=== PATIENT | female | born 1935 | race Caucasian/White ===

== ENCOUNTER 2017-05-20 21:13 | Emergency (ER) | payer MEDICARE, OTHER ==
[~2017-05-20] VITALS: Ht 162.6 cm; Wt 77.3 kg
[2017-05-20] MEDS ORDERED: acetaminophen 325mg tablet PO ONE (21:30)
[2017-05-20 22:01] LABS: BASOPHILS % (AUTO) 0.1 % (0-1); EOSINOPHILS % (AUTO) 0.9 % (0-6); HEMATOCRIT 40.7 % (35.0-45.0); HEMOGLOBIN 13.9 g/dl (12.0-16.0); LYMPHOCYTES # (AUTO) 0.4 X10'3 (1.1-4.8); LYMPHOCYTES % (AUTO) 6.9 % (21-51); MEAN CORPUSCULAR HEMOGLOBIN 34.2 PG (27.0-31.0); MEAN CORPUSCULAR VOLUME 100.5 FL (78-98); MEAN PLATELET VOLUME 7.8 FL (7.4-10.4); MONOCYTES # (AUTO) 0.3 X10'3 (0-0.9); MONOCYTES % (AUTO) 6.4 % (2-12); NEUTROPHILS # (AUTO) 4.5 X10'3 (1.8-7.7); NEUTROPHILS % (AUTO) 85.7 % (42-75); PLATELET COUNT 184 X10'3 (140-440); RED BLOOD COUNT 4.05 X10'6 (4.20-5.60); RED CELL DISTRIBUTION WIDTH 14.7 % (11.5-14.5); WHITE BLOOD COUNT 5.2 X10'3 (4.5-11.0)
[2017-05-20 22:14] LABS: INR 1.1 INR; PARTIAL THROMBOPLASTIN TIME 31 SECONDS (22-32); PROTHROMBIN TIME 10.9 SECONDS (9.0-12.0)
[2017-05-20 22:16] LABS: ALANINE AMINOTRANSFERASE 33 U/L (12-78); ALBUMIN 3.8 G/DL (3.4-5.0); ALBUMIN/GLOBULIN RATIO 1.2 (1.1-1.5); ALKALINE PHOSPHATASE 69 IU/L (46-116); ANION GAP 10 (8-16); ASPARTATE AMINO TRANSFERASE 34 U/L (10-37); BILIRUBIN,TOTAL 0.4 MG/DL (0.1-1.0); BLOOD UREA NITROGEN 10 MG/DL (7-18); BUN/CREATININE RATIO 10.1 (6.6-38.0); CALCIUM 9.2 MG/DL (8.5-10.1); CHLORIDE 107 MMOL/L (99-107); CREATININE 0.99 MG/DL (0.40-0.90); GLUCOSE 119 MG/DL (70-104); POTASSIUM 3.4 MMOL/L (3.5-5.1); SODIUM 143 MMOL/L (135-145); TOTAL CARBON DIOXIDE 26.3 MMOL/L (24-32); TOTAL PROTEIN 6.9 G/DL (6.4-8.2); eGFR 54 ML/MIN
[2017-05-20] MEDS ORDERED: normal saline 1000ML IV soln IVB ONE (23:00)
[2017-05-20] MEDS ORDERED: ondansetron/PF 4mg/2ml inj IV ONE (23:25)
[2017-05-21 00:07] LABS: CLARITY,URINE Clear (Clear); COLOR,URINE Yellow (Yellow); GLUCOSE, URINE Negative (Neg); KETONES,URINE Trace mg/dl (Neg); LEUKOCYTE ESTERASE ,URINE Moderate (Neg); NITRITES, URINE Negative (Neg); OCCULT BLOOD,URINE Negative (Neg); PH,URINE 5.5 (4.8-8.0); PROTEIN,URINE 30 mg/dl (Neg)
[2017-05-21 00:09] LABS: UA COLLECTION TYPE CLN CATCH MIDSTREAM
[2017-05-21 00:25] LABS: BACTERIA,URINE NONE SEEN /HPF (Neg); MUCUS STRANDS MANY /LPF (Neg); RBC,URINE NONE SEEN /HPF (0-2); SQUAMOUS EPITHELIAL CELL,UR FEW /LPF (FEW)
[2017-05-21] MEDS ORDERED: TAM75C PO (00:29)
[2017-05-21] MEDS ORDERED: ONDA8TAB9 PO (00:29)
[2017-05-21] MEDS ORDERED: oseltamivir phos 75mg capsule PO ONE (00:30)
[2017-05-21 01:44] VITALS: BP 129/73
[2017-05-21] MEDS ORDERED: ASPI-1265 PO (13:47)
[2017-05-21] MEDS ORDERED: CITA20TA11 PO (13:47)
[2017-05-21] MEDS ORDERED: OMEP40CA37 PO (13:47)
[2017-05-21] MEDS ORDERED: ROSU10TA PO (13:47)
[2017-05-21] MEDS ORDERED: FAMO40TA7 PO (13:47)
[2017-05-21] MEDS ORDERED: OSC500T PO (13:47)
[2017-05-21] MEDS ORDERED: CELE-193 PO (13:47)
[2017-05-21] MEDS ORDERED: CALC-1197 PO (13:47)
[2017-05-21] MEDS ORDERED: TOLT4CAP14 PO (13:47)
== END 2017-05-21 02:35 | disposition home or self-care (01) ==
LOC: ER 21:14
DX: J11.1 Influenza due to unidentified influenza virus with other respiratory manifestations (principal); R11.2 Nausea with vomiting, unspecified; R19.7 Diarrhea, unspecified; Z88.1 Allergy status to other antibiotic agents; Z88.8 Allergy status to other drugs, medicaments and biological substances; Z79.899 Other long term (current) drug therapy
CPT/HCPCS: 36415; 71045; 80053; 81001; 83605; 84145; 85025; 85610; 85730; 87040; 87088; 96361; 96374; 96375; 99285; J2270; J2405; J7030

== ENCOUNTER 2017-05-21 12:06 | Inpatient (IN) | payer MEDICARE, OTHER ==
[~2017-05-21] VITALS: Ht 162.6 cm; Wt 77.2 kg
[~2017-05-21 12:06] MED LIST: ONDA8TAB9 PO; TAM75C PO
[2017-05-21] MEDS ORDERED: normal saline 1000ML IV soln IVB ONE (13:10)
[2017-05-21 13:46] LABS: BASOPHILS % (AUTO) 0.2 % (0-1); EOSINOPHILS % (AUTO) 0 % (0-6); HEMATOCRIT 38.8 % (35.0-45.0); LYMPHOCYTES # (AUTO) 0.5 X10'3 (1.1-4.8); LYMPHOCYTES % (AUTO) 9.2 % (21-51); MEAN CORPUSCULAR HEMOGLOBIN 33.7 PG (27.0-31.0); MEAN CORPUSCULAR HGB CONC 33.5 % (33.0-36.5); MEAN CORPUSCULAR VOLUME 100.5 FL (78-98); MEAN PLATELET VOLUME 7.9 FL (7.4-10.4); MONOCYTES # (AUTO) 0.6 X10'3 (0-0.9); MONOCYTES % (AUTO) 10.9 % (2-12); NEUTROPHILS # (AUTO) 4.1 X10'3 (1.8-7.7); NEUTROPHILS % (AUTO) 79.7 % (42-75); PLATELET COUNT 178 X10'3 (140-440); RED BLOOD COUNT 3.86 X10'6 (4.20-5.60); RED CELL DISTRIBUTION WIDTH 14.6 % (11.5-14.5); WHITE BLOOD COUNT 5.1 X10'3 (4.5-11.0)
[2017-05-21] MEDS ORDERED: ASPI-1265 PO (13:47)
[2017-05-21] MEDS ORDERED: OMEP40CA37 PO (13:47)
[2017-05-21] MEDS ORDERED: TOLT4CAP14 PO (13:47)
[2017-05-21] MEDS ORDERED: CALC-1197 PO (13:47)
[2017-05-21] MEDS ORDERED: ROSU10TA PO (13:47)
[2017-05-21] MEDS ORDERED: OSC500T PO (13:47)
[2017-05-21] MEDS ORDERED: CITA20TA11 PO (13:47)
[2017-05-21] MEDS ORDERED: FAMO40TA7 PO (13:47)
[2017-05-21] MEDS ORDERED: CELE-193 PO (13:47)
[2017-05-21 13:53] LABS: ANION GAP 9 (8-16); BILIRUBIN,TOTAL 0.4 MG/DL (0.1-1.0); BLOOD UREA NITROGEN 9 MG/DL (7-18); BUN/CREATININE RATIO 11.7 (6.6-38.0); CALCIUM 8.8 MG/DL (8.5-10.1); CHLORIDE 106 MMOL/L (99-107); CREATININE 0.77 MG/DL (0.40-0.90); GLUCOSE 101 MG/DL (70-104); POTASSIUM 3.6 MMOL/L (3.5-5.1); SODIUM 141 MMOL/L (135-145); TOTAL CARBON DIOXIDE 25.7 MMOL/L (24-32); eGFR 72 ML/MIN
[2017-05-21 13:54] LABS: ALANINE AMINOTRANSFERASE 32 U/L (12-78); ALBUMIN 3.4 G/DL (3.4-5.0); ALBUMIN/GLOBULIN RATIO 1.1 (1.1-1.5); ALKALINE PHOSPHATASE 57 IU/L (46-116); ASPARTATE AMINO TRANSFERASE 36 U/L (10-37); TOTAL PROTEIN 6.4 G/DL (6.4-8.2)
[2017-05-21] MEDS ORDERED: diphenhydrAMINE 25mg capsule PO PRN (14:50)
[2017-05-21] MEDS ORDERED: HYDROcodone/acetaminophen 5mg/325mg tablet PO PRN (14:50)
[2017-05-21] MEDS ORDERED: mag hydrox/Alum hydrox/simeth 30ml oral suspension PO PRN (14:50)
[2017-05-21] MEDS ORDERED: ondansetron/PF 4mg/2ml inj IV PRN (14:50)
[2017-05-21] MEDS ORDERED: acetaminophen 325mg tablet PO PRN ×2 (14:50)
[2017-05-21] MEDS ORDERED: metoclopramide 5 mg/ml inj IV PRN (14:50)
[2017-05-21] MEDS ORDERED: acetaminophen 650mg rectal suppository RC PRN (14:50)
[2017-05-21] MEDS ORDERED: diphenhydrAMINE 50 mg/ml inj IV PRN (14:50)
[2017-05-21] MEDS ORDERED: HYDROmorphone 1 mg/ml syringe IV PRN ×2 (14:50)
[2017-05-21] MEDS ORDERED: magnesium hydroxide 30ml (MOM) UD suspension PO PRN (14:50)
[2017-05-21] MEDS ORDERED: bisacodyl 10mg suppository rectal RC PRN (14:50)
[2017-05-21] MEDS: normal saline 1000ml 1,000 ML IV SCH ×2 (15:23→21:45)
[2017-05-21] MEDS: azithromycin/NS 500mg/250ml 250 ML IV SCH (15:23)
[2017-05-21 15:30] LABS: MAGNESIUM 1.8 MG/DL (1.5-2.4)
[2017-05-21] MEDS: HYDROcodone/acetaminophen 10/325mg tab PO PRN (16:32)
[2017-05-21 20:00] VITALS: BP 162/99
[2017-05-21] MEDS: heparin, porcine 5000 units/ml vial SQ SCH (20:00)
[2017-05-21] MEDS ORDERED: temazepam 15mg capsule PO PRN (21:00)
[2017-05-21] MEDS: pantoprazole 40mg Tablet.DR PO SCH (21:44)
[2017-05-21] MEDS: oseltamivir phos 75mg capsule PO SCH (21:44)
[2017-05-21] MEDS: methylPREDNISolone sod succ 125mg/2ml vial IV SCH (21:44)
[2017-05-21] MEDS: famotidine 20mg tablet PO SCH (21:44)
[2017-05-22] VITALS: BP 166/99
[2017-05-22 01:53] LABS: ALANINE AMINOTRANSFERASE 30 U/L (12-78); ALBUMIN 3.2 G/DL (3.4-5.0); ALBUMIN/GLOBULIN RATIO 1.1 (1.1-1.5); ALKALINE PHOSPHATASE 57 IU/L (46-116); ANION GAP 8 (8-16); ASPARTATE AMINO TRANSFERASE 36 U/L (10-37); BILIRUBIN,TOTAL 0.4 MG/DL (0.1-1.0); BLOOD UREA NITROGEN 9 MG/DL (7-18); BUN/CREATININE RATIO 12.9 (6.6-38.0); CALCIUM 8.1 MG/DL (8.5-10.1); CHLORIDE 106 MMOL/L (99-107); GLUCOSE 110 MG/DL (70-104); POTASSIUM 3.6 MMOL/L (3.5-5.1); SODIUM 138 MMOL/L (135-145); TOTAL CARBON DIOXIDE 23.7 MMOL/L (24-32); TOTAL PROTEIN 6.2 G/DL (6.4-8.2); eGFR 80 ML/MIN
[2017-05-22 02:30] LABS: BASOPHILS % (AUTO) 0.1 % (0-1); EOSINOPHILS % (AUTO) 0 % (0-6); HEMOGLOBIN 12.7 g/dl (12.0-16.0); LYMPHOCYTES # (AUTO) 0.6 X10'3 (1.1-4.8); LYMPHOCYTES % (AUTO) 13.3 % (21-51); MEAN CORPUSCULAR HEMOGLOBIN 33.9 PG (27.0-31.0); MEAN CORPUSCULAR HGB CONC 33.3 % (33.0-36.5); MEAN CORPUSCULAR VOLUME 101.7 FL (78-98); MEAN PLATELET VOLUME 8.2 FL (7.4-10.4); MONOCYTES # (AUTO) 0.1 X10'3 (0-0.9); MONOCYTES % (AUTO) 2.9 % (2-12); NEUTROPHILS # (AUTO) 3.6 X10'3 (1.8-7.7); NEUTROPHILS % (AUTO) 83.7 % (42-75); PLATELET COUNT 164 X10'3 (140-440); RED BLOOD COUNT 3.74 X10'6 (4.20-5.60); RED CELL DISTRIBUTION WIDTH 14.4 % (11.5-14.5); WHITE BLOOD COUNT 4.3 X10'3 (4.5-11.0)
[2017-05-22] MEDS: normal saline 1000ml 1,000 ML IV SCH ×2 (07:28→19:01)
[2017-05-22] MEDS: oseltamivir phos 75mg capsule PO SCH ×2 (07:28→20:43)
[2017-05-22] MEDS: methylPREDNISolone sod succ 125mg/2ml vial IV SCH (07:29)
[2017-05-22] MEDS: azithromycin/NS 500mg/250ml 250 ML IV SCH (07:29)
[2017-05-22] MEDS: tolterodine 2mg SR capsule (24hr) PO SCH (07:29)
[2017-05-22] MEDS: lactobacillus rhamnosus 10,000 MMU CELLS/CAPSULE PO SCH ×2 (07:30→16:52)
[2017-05-22] MEDS: aspirin 81mg tab.chew PO SCH (07:30)
[2017-05-22] MEDS: atorvastatin 20mg tablet PO SCH (07:31)
[2017-05-22] MEDS: citalopram 20mg tablet PO SCH (07:31)
[2017-05-22] MEDS: pantoprazole 40mg Tablet.DR PO SCH ×2 (07:31→16:52)
[2017-05-22] MEDS: heparin, porcine 5000 units/ml vial SQ SCH ×2 (08:00→20:00)
[2017-05-22 08:21] VITALS: BP 133/81
[2017-05-22 11:42] VITALS: BP 143/82
[2017-05-22] MEDS ORDERED: haloperidol 5mg tablet PO PRN (12:30)
[2017-05-22] MEDS ORDERED: haloperidol lactate 5mg/ml inj IM PRN (12:30)
[2017-05-22] MEDS ORDERED: LORazepam 2 mg/ml vial IV PRN (12:30)
[2017-05-22 20:00] VITALS: BP 140/78
[2017-05-22] MEDS: famotidine 20mg tablet PO SCH (20:43)
[2017-05-23] VITALS: BP 145/97
[2017-05-23 06:07] LABS: PROTHROMBIN TIME 10.4 SECONDS (9.0-12.0)
[2017-05-23 06:09] LABS: BASOPHILS % (AUTO) 0.2 % (0-1); EOSINOPHILS % (AUTO) 0 % (0-6); HEMOGLOBIN 12.8 g/dl (12.0-16.0); LYMPHOCYTES # (AUTO) 1.2 X10'3 (1.1-4.8); LYMPHOCYTES % (AUTO) 16.4 % (21-51); MEAN CORPUSCULAR HEMOGLOBIN 33.8 PG (27.0-31.0); MEAN CORPUSCULAR HGB CONC 33.6 % (33.0-36.5); MEAN CORPUSCULAR VOLUME 100.5 FL (78-98); MEAN PLATELET VOLUME 8.4 FL (7.4-10.4); MONOCYTES # (AUTO) 0.9 X10'3 (0-0.9); MONOCYTES % (AUTO) 12.3 % (2-12); NEUTROPHILS # (AUTO) 5.3 X10'3 (1.8-7.7); NEUTROPHILS % (AUTO) 71.1 % (42-75); PLATELET COUNT 214 X10'3 (140-440); RED BLOOD COUNT 3.78 X10'6 (4.20-5.60); RED CELL DISTRIBUTION WIDTH 14.4 % (11.5-14.5); WHITE BLOOD COUNT 7.5 X10'3 (4.5-11.0)
[2017-05-23 06:52] LABS: ALANINE AMINOTRANSFERASE 27 U/L (12-78); ALBUMIN 3.3 G/DL (3.4-5.0); ALBUMIN/GLOBULIN RATIO 1.1 (1.1-1.5); ALKALINE PHOSPHATASE 53 IU/L (46-116); AMYLASE 41 U/L (25-115); ANION GAP 10 (8-16); ASPARTATE AMINO TRANSFERASE 26 U/L (10-37); BILIRUBIN,TOTAL 0.3 MG/DL (0.1-1.0); BLOOD UREA NITROGEN 14 MG/DL (7-18); BUN/CREATININE RATIO 13.6 (6.6-38.0); CALCIUM 8.9 MG/DL (8.5-10.1); CHLORIDE 109 MMOL/L (99-107); CREATININE 1.03 MG/DL (0.40-0.90); GLUCOSE 112 MG/DL (70-104); LIPASE 109 U/L (73-393); PHOSPHORUS 1.8 MG/DL (2.3-4.5); POTASSIUM 3.4 MMOL/L (3.5-5.1); SODIUM 144 MMOL/L (135-145); TOTAL CARBON DIOXIDE 25.4 MMOL/L (24-32); TOTAL PROTEIN 6.4 G/DL (6.4-8.2); eGFR 51 ML/MIN
[2017-05-23 07:28] VITALS: BP 149/81
[2017-05-23] MEDS: lactobacillus rhamnosus 10,000 MMU CELLS/CAPSULE PO SCH (07:30)
[2017-05-23] MEDS: heparin, porcine 5000 units/ml vial SQ SCH ×2 (08:00→22:08)
[2017-05-23] MEDS: atorvastatin 20mg tablet PO SCH (08:07)
[2017-05-23] MEDS: oseltamivir phos 75mg capsule PO SCH ×2 (08:07→22:08)
[2017-05-23] MEDS: predniSONE 20 mg tablet PO SCH (08:07)
[2017-05-23] MEDS: tolterodine 2mg SR capsule (24hr) PO SCH (08:07)
[2017-05-23] MEDS: pantoprazole 40mg Tablet.DR PO SCH ×2 (08:07→17:00)
[2017-05-23] MEDS: aspirin 81mg tab.chew PO SCH (08:07)
[2017-05-23] MEDS: citalopram 20mg tablet PO SCH (08:08)
[2017-05-23] MEDS: azithromycin 250mg tablet PO SCH (08:08)
[2017-05-23 11:24] VITALS: BP 109/68
[2017-05-23 20:00] VITALS: BP 158/88
[2017-05-23] MEDS: famotidine 20mg tablet PO SCH (22:08)
[2017-05-24] VITALS: BP 150/80
[2017-05-24 05:55] LABS: BASOPHILS % (AUTO) 0.2 % (0-1); EOSINOPHILS % (AUTO) 0 % (0-6); HEMATOCRIT 35.4 % (35.0-45.0); HEMOGLOBIN 11.8 g/dl (12.0-16.0); LYMPHOCYTES # (AUTO) 1.6 X10'3 (1.1-4.8); LYMPHOCYTES % (AUTO) 32.2 % (21-51); MEAN CORPUSCULAR HEMOGLOBIN 33.6 PG (27.0-31.0); MEAN CORPUSCULAR HGB CONC 33.5 % (33.0-36.5); MEAN CORPUSCULAR VOLUME 100.5 FL (78-98); MEAN PLATELET VOLUME 7.9 FL (7.4-10.4); MONOCYTES # (AUTO) 0.5 X10'3 (0-0.9); MONOCYTES % (AUTO) 10.7 % (2-12); NEUTROPHILS # (AUTO) 2.9 X10'3 (1.8-7.7); NEUTROPHILS % (AUTO) 56.9 % (42-75); PLATELET COUNT 205 X10'3 (140-440); RED BLOOD COUNT 3.52 X10'6 (4.20-5.60); RED CELL DISTRIBUTION WIDTH 14.3 % (11.5-14.5)
[2017-05-24 06:14] LABS: PROTHROMBIN TIME 10.4 SECONDS (9.0-12.0)
[2017-05-24 06:52] LABS: ALANINE AMINOTRANSFERASE 31 U/L (12-78); ALBUMIN 2.9 G/DL (3.4-5.0); ALBUMIN/GLOBULIN RATIO 1.1 (1.1-1.5); ALKALINE PHOSPHATASE 42 IU/L (46-116); AMYLASE 43 U/L (25-115); ANION GAP 9 (8-16); ASPARTATE AMINO TRANSFERASE 25 U/L (10-37); BILIRUBIN,TOTAL 0.3 MG/DL (0.1-1.0); BLOOD UREA NITROGEN 15 MG/DL (7-18); BUN/CREATININE RATIO 17.6 (6.6-38.0); CHLORIDE 110 MMOL/L (99-107); CREATININE 0.85 MG/DL (0.40-0.90); GLUCOSE 86 MG/DL (70-104); LIPASE 162 U/L (73-393); MAGNESIUM 1.7 MG/DL (1.5-2.4); PHOSPHORUS 2.2 MG/DL (2.3-4.5); SODIUM 145 MMOL/L (135-145); TOTAL CARBON DIOXIDE 26.5 MMOL/L (24-32); TOTAL PROTEIN 5.6 G/DL (6.4-8.2); eGFR 64 ML/MIN
[2017-05-24 07:27] VITALS: BP 127/87
[2017-05-24] MEDS: predniSONE 20 mg tablet PO SCH (08:00)
[2017-05-24] MEDS: heparin, porcine 5000 units/ml vial SQ SCH ×2 (08:00→20:00)
[2017-05-24] MEDS: atorvastatin 20mg tablet PO SCH (09:35)
[2017-05-24] MEDS: pantoprazole 40mg Tablet.DR PO SCH ×2 (09:35→17:35)
[2017-05-24] MEDS: aspirin 81mg tab.chew PO SCH (09:35)
[2017-05-24] MEDS: oseltamivir phos 75mg capsule PO SCH ×2 (09:35→21:11)
[2017-05-24] MEDS: azithromycin 250mg tablet PO SCH (09:36)
[2017-05-24] MEDS: LACTOBACILLUS RHAMNOSUS GG 15 billion unit sprinkle caps PO SCH (09:36)
[2017-05-24] MEDS: citalopram 20mg tablet PO SCH (09:37)
[2017-05-24] MEDS: tolterodine 2mg SR capsule (24hr) PO SCH (09:38)
[2017-05-24] MEDS ORDERED: citalopram 20mg tablet PO ONE (09:55)
[2017-05-24 11:00] VITALS: BP 112/77
[2017-05-24] MEDS ORDERED: LORazepam 2 mg/ml vial IV PRN (12:30)
[2017-05-24] MEDS ORDERED: LORazepam 1 MG tablet PO PRN (12:30)
[2017-05-24] MEDS ORDERED: potassium Cl 40MEQ/NS 500ml 500 ML IV PRN ×2 (13:20)
[2017-05-24] MEDS ORDERED: potassium Cl 20 mEq SR tablet PO PRN (13:20)
[2017-05-24] MEDS ORDERED: magnesium 4gm in 100ml NS 100 ML IV PRN (13:20)
[2017-05-24] MEDS ORDERED: magnesium 2GM in 50ml NS 50 ML IV PRN (13:20)
[2017-05-24] MEDS ORDERED: magnesium Cl slow-release 64mg tablet PO PRN (13:20)
[2017-05-24] MEDS: potassium Cl 20 mEq SR tablet PO PRN ×3 (13:50→21:26)
[2017-05-24 18:00] VITALS: BP 148/92
[2017-05-24] MEDS: famotidine 20mg tablet PO SCH (21:13)
[2017-05-25] VITALS: BP 151/89
[2017-05-25 01:44] LABS: CLARITY,URINE Clear (Clear); COLOR,URINE Yellow (Yellow); GLUCOSE, URINE Negative (Neg); KETONES,URINE Negative (Neg); LEUKOCYTE ESTERASE ,URINE Trace (Neg); NITRITES, URINE Negative (Neg); OCCULT BLOOD,URINE Negative (Neg); PH,URINE 8.5 (4.8-8.0); PROTEIN,URINE Negative (Neg); UA COLLECTION TYPE NON-SPECIFIED
[2017-05-25 01:51] LABS: BACTERIA,URINE FEW /HPF (Neg); MUCUS STRANDS NONE SEEN /LPF (Neg); RBC,URINE NONE SEEN /HPF (0-2); SQUAMOUS EPITHELIAL CELL,UR FEW /LPF (FEW); TRANSITIONAL EPI CELLS,URINE FEW /HPF; WBC,URINE 0-4 /HPF (0-4)
[2017-05-25 06:28] LABS: BASOPHILS % (AUTO) 0.2 % (0-1); EOSINOPHILS % (AUTO) 0.5 % (0-6); HEMATOCRIT 39.5 % (35.0-45.0); HEMOGLOBIN 13.4 g/dl (12.0-16.0); LYMPHOCYTES # (AUTO) 2.4 X10'3 (1.1-4.8); LYMPHOCYTES % (AUTO) 45.2 % (21-51); MEAN CORPUSCULAR HEMOGLOBIN 34.2 PG (27.0-31.0); MEAN CORPUSCULAR HGB CONC 34.1 % (33.0-36.5); MEAN CORPUSCULAR VOLUME 100.5 FL (78-98); MEAN PLATELET VOLUME 8.1 FL (7.4-10.4); MONOCYTES # (AUTO) 0.6 X10'3 (0-0.9); MONOCYTES % (AUTO) 11.3 % (2-12); NEUTROPHILS # (AUTO) 2.2 X10'3 (1.8-7.7); NEUTROPHILS % (AUTO) 42.8 % (42-75); PLATELET COUNT 226 X10'3 (140-440); RED BLOOD COUNT 3.93 X10'6 (4.20-5.60); RED CELL DISTRIBUTION WIDTH 14.1 % (11.5-14.5); WHITE BLOOD COUNT 5.2 X10'3 (4.5-11.0)
[2017-05-25 06:36] LABS: PROTHROMBIN TIME 10.5 SECONDS (9.0-12.0)
[2017-05-25 07:06] LABS: ALANINE AMINOTRANSFERASE 33 U/L (12-78); ALBUMIN 3.3 G/DL (3.4-5.0); ALBUMIN/GLOBULIN RATIO 1.1 (1.1-1.5); ALKALINE PHOSPHATASE 46 IU/L (46-116); AMYLASE 56 U/L (25-115); ANION GAP 8 (8-16); ASPARTATE AMINO TRANSFERASE 31 U/L (10-37); BILIRUBIN,TOTAL 0.4 MG/DL (0.1-1.0); BLOOD UREA NITROGEN 12 MG/DL (7-18); BUN/CREATININE RATIO 12.2 (6.6-38.0); CALCIUM 8.6 MG/DL (8.5-10.1); CHLORIDE 109 MMOL/L (99-107); CREATININE 0.98 MG/DL (0.40-0.90); GLUCOSE 80 MG/DL (70-104); LIPASE 236 U/L (73-393); POTASSIUM 4.3 MMOL/L (3.5-5.1); SODIUM 143 MMOL/L (135-145); TOTAL CARBON DIOXIDE 26.1 MMOL/L (24-32); TOTAL PROTEIN 6.2 G/DL (6.4-8.2); eGFR 54 ML/MIN
[2017-05-25] MEDS: heparin, porcine 5000 units/ml vial SQ SCH ×2 (07:43→20:00)
[2017-05-25] MEDS: tolterodine 2mg SR capsule (24hr) PO SCH (07:44)
[2017-05-25] MEDS: oseltamivir phos 75mg capsule PO SCH ×2 (07:44→20:32)
[2017-05-25] MEDS: citalopram 20mg tablet PO SCH (07:44)
[2017-05-25] MEDS: aspirin 81mg tab.chew PO SCH (07:45)
[2017-05-25] MEDS: pantoprazole 40mg Tablet.DR PO SCH ×2 (07:45→17:19)
[2017-05-25] MEDS: azithromycin 250mg tablet PO SCH (07:45)
[2017-05-25] MEDS: LACTOBACILLUS RHAMNOSUS GG 15 billion unit sprinkle caps PO SCH (07:45)
[2017-05-25] MEDS: atorvastatin 20mg tablet PO SCH (07:45)
[2017-05-25] MEDS: predniSONE 20 mg tablet PO SCH (07:45)
[2017-05-25 08:00] VITALS: BP 142/75
[2017-05-25 11:13] VITALS: BP 141/90
[2017-05-25 18:00] VITALS: BP 150/89
[2017-05-25] MEDS: famotidine 20mg tablet PO SCH (20:30)
[2017-05-26] VITALS: BP 123/75
[2017-05-26 05:08] LABS: BASOPHILS % (AUTO) 0.4 % (0-1); EOSINOPHILS % (AUTO) 0.7 % (0-6); HEMATOCRIT 38.5 % (35.0-45.0); LYMPHOCYTES # (AUTO) 2.1 X10'3 (1.1-4.8); LYMPHOCYTES % (AUTO) 45.1 % (21-51); MEAN CORPUSCULAR HEMOGLOBIN 33.8 PG (27.0-31.0); MEAN CORPUSCULAR HGB CONC 33.8 % (33.0-36.5); MEAN CORPUSCULAR VOLUME 99.9 FL (78-98); MEAN PLATELET VOLUME 7.9 FL (7.4-10.4); MONOCYTES # (AUTO) 0.6 X10'3 (0-0.9); MONOCYTES % (AUTO) 12.5 % (2-12); NEUTROPHILS # (AUTO) 1.9 X10'3 (1.8-7.7); NEUTROPHILS % (AUTO) 41.3 % (42-75); PLATELET COUNT 229 X10'3 (140-440); RED BLOOD COUNT 3.85 X10'6 (4.20-5.60); WHITE BLOOD COUNT 4.7 X10'3 (4.5-11.0)
[2017-05-26 05:36] LABS: PROTHROMBIN TIME 10.7 SECONDS (9.0-12.0)
[2017-05-26 06:18] LABS: ALANINE AMINOTRANSFERASE 29 U/L (12-78); ALBUMIN 3.1 G/DL (3.4-5.0); ALBUMIN/GLOBULIN RATIO 1.1 (1.1-1.5); ALKALINE PHOSPHATASE 49 IU/L (46-116); AMYLASE 56 U/L (25-115); ANION GAP 7 (8-16); ASPARTATE AMINO TRANSFERASE 21 U/L (10-37); BILIRUBIN,TOTAL 0.5 MG/DL (0.1-1.0); BLOOD UREA NITROGEN 15 MG/DL (7-18); BUN/CREATININE RATIO 13.9 (6.6-38.0); CALCIUM 8.2 MG/DL (8.5-10.1); CHLORIDE 109 MMOL/L (99-107); CREATININE 1.08 MG/DL (0.40-0.90); GLUCOSE 95 MG/DL (70-104); LIPASE 184 U/L (73-393); MAGNESIUM 2.1 MG/DL (1.5-2.4); POTASSIUM 3.8 MMOL/L (3.5-5.1); SODIUM 142 MMOL/L (135-145); TOTAL CARBON DIOXIDE 26.3 MMOL/L (24-32); TOTAL PROTEIN 5.9 G/DL (6.4-8.2); eGFR 49 ML/MIN
[2017-05-26] MEDS: predniSONE 20 mg tablet PO SCH (07:08)
[2017-05-26] MEDS: heparin, porcine 5000 units/ml vial SQ SCH ×2 (07:08→20:00)
[2017-05-26] MEDS: azithromycin 250mg tablet PO SCH (07:09)
[2017-05-26] MEDS: citalopram 20mg tablet PO SCH (07:09)
[2017-05-26] MEDS: LACTOBACILLUS RHAMNOSUS GG 15 billion unit sprinkle caps PO SCH (07:09)
[2017-05-26] MEDS: aspirin 81mg tab.chew PO SCH (07:09)
[2017-05-26] MEDS: oseltamivir phos 75mg capsule PO SCH (07:09)
[2017-05-26] MEDS: pantoprazole 40mg Tablet.DR PO SCH ×2 (07:10→17:28)
[2017-05-26] MEDS: tolterodine 2mg SR capsule (24hr) PO SCH (07:10)
[2017-05-26] MEDS: atorvastatin 20mg tablet PO SCH (07:10)
[2017-05-26 08:00] VITALS: BP 124/76
[2017-05-26 12:00] VITALS: BP 117/67
[2017-05-26] MEDS ORDERED: LORazepam 2 mg/ml vial IV PRN (12:30)
[2017-05-26] MEDS ORDERED: LORazepam 1 MG tablet PO PRN (12:30)
[2017-05-26 19:00] VITALS: BP 137/79
[2017-05-26] MEDS: famotidine 20mg tablet PO SCH (20:35)
[2017-05-26] MEDS: HYDROcodone/acetaminophen 10/325mg tab PO PRN (20:40)
[2017-05-26 23:30] VITALS: BP 123/78
[2017-05-27 04:04] LABS: INR 1.1 INR; PROTHROMBIN TIME 10.9 SECONDS (9.0-12.0)
[2017-05-27 04:18] LABS: MAGNESIUM 2.1 MG/DL (1.5-2.4); PHOSPHORUS 3.7 MG/DL (2.3-4.5); POTASSIUM 3.8 MMOL/L (3.5-5.1)
[2017-05-27] MEDS: heparin, porcine 5000 units/ml vial SQ SCH (07:26)
[2017-05-27] MEDS: predniSONE 20 mg tablet PO SCH (07:26)
[2017-05-27] MEDS: aspirin 81mg tab.chew PO SCH (07:38)
[2017-05-27] MEDS: LACTOBACILLUS RHAMNOSUS GG 15 billion unit sprinkle caps PO SCH (07:39)
[2017-05-27] MEDS: pantoprazole 40mg Tablet.DR PO SCH (07:39)
[2017-05-27] MEDS: atorvastatin 20mg tablet PO SCH (07:40)
[2017-05-27] MEDS: azithromycin 250mg tablet PO SCH (07:40)
[2017-05-27] MEDS: tolterodine 2mg SR capsule (24hr) PO SCH (07:40)
[2017-05-27] MEDS: citalopram 20mg tablet PO SCH (07:41)
[2017-05-27 07:58] VITALS: BP 102/66
[2017-05-27 11:54] VITALS: BP 102/61
== END 2017-05-27 12:27 | disposition home health service (06) | DRG 194 ==
LOC: ER 12:06 → ED HOLD 14:47 → EDBEDREQ 16:40 → SUR 3N 17:54
PROVIDERS: ADMIT Family Medicine; ATTEND Family Medicine
DX: J09.X2 Influenza due to identified novel influenza A virus with other respiratory manifestations (principal); N39.0 Urinary tract infection, site not specified; E86.0 Dehydration; K52.9 Noninfective gastroenteritis and colitis, unspecified; E78.00 Pure hypercholesterolemia, unspecified; E78.5 Hyperlipidemia, unspecified; I10 Essential (primary) hypertension; E87.6 Hypokalemia; J20.9 Acute bronchitis, unspecified; J45.909 Unspecified asthma, uncomplicated; N32.81 Overactive bladder; R09.02 Hypoxemia; R32 Unspecified urinary incontinence; F10.10 Alcohol abuse, uncomplicated; Z88.1 Allergy status to other antibiotic agents; Z88.8 Allergy status to other drugs, medicaments and biological substances; Z87.891 Personal history of nicotine dependence
CPT/HCPCS: 36415; 73130; 80053; 81001; 82150; 83690; 83735; 83880; 84100; 84132; 84484; 85025; 85610; 87070; 87088; 87502; 87503; 94760; 97110; 97116; 97162; 97530; 99285; A6212; A6213; J0456; J1644; J2060; J2405; J2930; J7030; J7512

== ENCOUNTER 2017-07-18 17:52 | Inpatient (IN) | payer MEDICARE, OTHER ==
[~2017-07-18] VITALS: Ht 162.6 cm; Wt 72.0 kg
[~2017-07-18 17:52] MED LIST changes: +ASPI-1265 PO; +CALC-1197 PO; +CELE-193 PO; +CITA20TA11 PO; +FAMO40TA7 PO; +OMEP40CA37 PO; +ROSU10TA PO; -TAM75C PO; +TOLT4CAP14 PO
[2017-07-18] MEDS ORDERED: morphine 2 MG/ML inj. syringe IV ONE (18:45)
[2017-07-18 18:46] LABS: BASOPHILS % (AUTO) 0.6 % (0-1); EOSINOPHILS % (AUTO) 0.9 % (0-6); HEMATOCRIT 37.4 % (35.0-45.0); HEMOGLOBIN 12.8 g/dl (12.0-16.0); LYMPHOCYTES # (AUTO) 1.5 X10'3 (1.1-4.8); MEAN CORPUSCULAR HEMOGLOBIN 33.9 PG (27.0-31.0); MEAN CORPUSCULAR HGB CONC 34.3 % (33.0-36.5); MEAN CORPUSCULAR VOLUME 98.8 FL (78-98); MEAN PLATELET VOLUME 7.7 FL (7.4-10.4); MONOCYTES # (AUTO) 0.5 X10'3 (0-0.9); NEUTROPHILS # (AUTO) 3.1 X10'3 (1.8-7.7); NEUTROPHILS % (AUTO) 60.5 % (42-75); PLATELET COUNT 222 X10'3 (140-440); RED BLOOD COUNT 3.78 X10'6 (4.20-5.60); RED CELL DISTRIBUTION WIDTH 14.7 % (11.5-14.5); WHITE BLOOD COUNT 5.2 X10'3 (4.5-11.0)
[2017-07-18] MEDS ORDERED: morphine 4 MG/ML inj SYRINge IV ONE (18:50)
[2017-07-18 18:59] LABS: PARTIAL THROMBOPLASTIN TIME 29 SECONDS (22-32); PROTHROMBIN TIME 10.6 SECONDS (9.0-12.0)
[2017-07-18 19:06] LABS: ALANINE AMINOTRANSFERASE 24 U/L (12-78); ALBUMIN 3.9 G/DL (3.4-5.0); ALBUMIN/GLOBULIN RATIO 1.4 (1.1-1.5); ALKALINE PHOSPHATASE 69 IU/L (46-116); ANION GAP 13 (8-16); ASPARTATE AMINO TRANSFERASE 26 U/L (10-37); BILIRUBIN,TOTAL 0.5 MG/DL (0.1-1.0); BLOOD UREA NITROGEN 30 MG/DL (7-18); BUN/CREATININE RATIO 26.1 (6.6-38.0); CALCIUM 9.3 MG/DL (8.5-10.1); CHLORIDE 107 MMOL/L (99-107); CREATININE 1.15 MG/DL (0.40-0.90); GLUCOSE 104 MG/DL (70-104); POTASSIUM 3.9 MMOL/L (3.5-5.1); SODIUM 142 MMOL/L (135-145); TOTAL CARBON DIOXIDE 21.9 MMOL/L (24-32); TOTAL PROTEIN 6.7 G/DL (6.4-8.2); eGFR 45 ML/MIN
[2017-07-18 19:50] LABS: CLARITY,URINE SLIGHTLY CLOUDY (Clear); COLOR,URINE YELLOW (Yellow); GLUCOSE, URINE NEGATIVE (Neg); KETONES,URINE NEGATIVE (Neg); LEUKOCYTE ESTERASE ,URINE SMALL (Neg); NITRITES, URINE NEGATIVE (Neg); OCCULT BLOOD,URINE SMALL (Neg); PH,URINE 5.5 (4.8-8.0); PROTEIN,URINE 100 mg/dl (Neg)
[2017-07-18 19:55] LABS: UA COLLECTION TYPE FOLEY CATH
[2017-07-18 19:58] LABS: BACTERIA,URINE FEW /HPF (Neg); RBC,URINE 0-2 /HPF (0-2); SQUAMOUS EPITHELIAL CELL,UR FEW /LPF (FEW); WBC CLUMPS,URINE FEW /HPF (NEGATIVE); WBC,URINE 30-50 /HPF (0-4)
[2017-07-18] MEDS ORDERED: ondansetron/PF 4mg/2ml inj IV PRN (22:20)
[2017-07-18] MEDS ORDERED: acetaminophen 325mg tablet PO PRN (22:20)
[2017-07-18] MEDS ORDERED: LORazepam 2 mg/ml vial IM PRN (22:20)
[2017-07-18] MEDS: morphine 4 MG/ML inj SYRINge IV PRN (23:19)
[2017-07-18] MEDS: normal saline 1000ml 1,000 ML IV SCH (23:19)
[2017-07-19] VITALS (21 sets, daily range): BP systolic 110–161; BP diastolic 68–89
[2017-07-19] MEDS ORDERED: thiamine inj. 100 MG in normal saline 100ml IV soln 100 ML IV ONE (05:10)
[2017-07-19] MEDS: morphine 4 MG/ML inj SYRINge IV PRN ×2 (05:55→11:11)
[2017-07-19 07:34] LABS: BASOPHILS % (AUTO) 0.2 % (0-1); EOSINOPHILS % (AUTO) 0 % (0-6); HEMATOCRIT 35.6 % (35.0-45.0); HEMOGLOBIN 12.4 g/dl (12.0-16.0); LYMPHOCYTES % (AUTO) 13.6 % (21-51); MEAN CORPUSCULAR HEMOGLOBIN 34.1 PG (27.0-31.0); MEAN CORPUSCULAR HGB CONC 34.9 % (33.0-36.5); MEAN CORPUSCULAR VOLUME 97.9 FL (78-98); MONOCYTES # (AUTO) 0.6 X10'3 (0-0.9); NEUTROPHILS # (AUTO) 5.5 X10'3 (1.8-7.7); NEUTROPHILS % (AUTO) 78.2 % (42-75); PLATELET COUNT 197 X10'3 (140-440); RED BLOOD COUNT 3.64 X10'6 (4.20-5.60); RED CELL DISTRIBUTION WIDTH 14.8 % (11.5-14.5); WHITE BLOOD COUNT 7.1 X10'3 (4.5-11.0)
[2017-07-19 07:59] LABS: ALANINE AMINOTRANSFERASE 29 U/L (12-78); ALBUMIN 3.6 G/DL (3.4-5.0); ALBUMIN/GLOBULIN RATIO 1.3 (1.1-1.5); ALKALINE PHOSPHATASE 63 IU/L (46-116); ANION GAP 12 (8-16); ASPARTATE AMINO TRANSFERASE 20 U/L (10-37); BILIRUBIN,TOTAL 0.8 MG/DL (0.1-1.0); BLOOD UREA NITROGEN 25 MG/DL (7-18); BUN/CREATININE RATIO 25.8 (6.6-38.0); CALCIUM 8.7 MG/DL (8.5-10.1); CHLORIDE 107 MMOL/L (99-107); CREATININE 0.97 MG/DL (0.40-0.90); GLUCOSE 115 MG/DL (70-104); POTASSIUM 3.9 MMOL/L (3.5-5.1); SODIUM 141 MMOL/L (135-145); TOTAL CARBON DIOXIDE 21.9 MMOL/L (24-32); TOTAL PROTEIN 6.3 G/DL (6.4-8.2); eGFR 55 ML/MIN
[2017-07-19] MEDS: heparin, porcine 5000 units/ml vial SQ SCH ×2 (08:00→19:40)
[2017-07-19] MEDS: levoFLOXACIN-Levaquin 250mg/D5 50 ML IV SCH (08:37)
[2017-07-19] MEDS: normal saline 1000ml 1,000 ML IV SCH ×2 (08:44→19:38)
[2017-07-19] MEDS: folic acid inj. 2 MG, thiamine inj. 100 MG, MVI, adult No.4 with vit. K 10 ML in dextro... IV SCH ×4 (10:07)
[2017-07-19] MEDS ORDERED: clindamycin 600mg/D5W 50ml 50 ML IV ONE (11:30)
[2017-07-19] MEDS: LORazepam 2 mg/ml vial IV PRN ×2 (12:36→23:08)
[2017-07-19] MEDS ORDERED: hydrALAZINE 20mg/ml inj. IV PRN (13:35)
[2017-07-19] MEDS ORDERED: morphine 4 MG/ML inj SYRINge IV PRN (14:15)
[2017-07-19] MEDS ORDERED: ondansetron/PF 4mg/2ml inj IV PRN (14:15)
[2017-07-19] MEDS ORDERED: proCHLORperazine 10 MG/2 ml inj IV PRN (14:15)
[2017-07-19] MEDS ORDERED: ringers solution, lacted 1,000 ML IV SCH (14:15)
[2017-07-19] MEDS ORDERED: meperidine/PF 50mg/ml syringe IV PRN (14:15)
[2017-07-19] MEDS ORDERED: propofol inj 20 ML IV ONE (15:18)
[2017-07-19] MEDS ORDERED: bisacodyl 10mg suppository rectal RC PRN (15:30)
[2017-07-19] MEDS ORDERED: magnesium hydroxide 30ml (MOM) UD suspension PO PRN (15:30)
[2017-07-19] MEDS ORDERED: diphenhydrAMINE 25mg capsule PO PRN ×2 (15:30)
[2017-07-19] MEDS ORDERED: acetaminophen 325mg tablet PO PRN (15:30)
[2017-07-19] MEDS: lactobacillus rhamnosus 10,000 MMU CELLS/CAPSULE PO SCH (19:38)
[2017-07-19] MEDS: sennosides 8.6mg tablet PO SCH (19:40)
[2017-07-19] MEDS ORDERED: vancomycin/NS 1 GM ADD-VANTAGE 250 ML IV SCH (20:00)
[2017-07-20] VITALS (8 sets, daily range): BP systolic 115–166; BP diastolic 67–91
[2017-07-20 05:22] LABS: BASOPHILS % (AUTO) 0 % (0-1); EOSINOPHILS % (AUTO) 0.1 % (0-6); HEMATOCRIT 35.5 % (35.0-45.0); HEMOGLOBIN 12.5 g/dl (12.0-16.0); LYMPHOCYTES # (AUTO) 0.6 X10'3 (1.1-4.8); LYMPHOCYTES % (AUTO) 6.1 % (21-51); MEAN CORPUSCULAR HEMOGLOBIN 34.3 PG (27.0-31.0); MEAN CORPUSCULAR HGB CONC 35.2 % (33.0-36.5); MEAN CORPUSCULAR VOLUME 97.3 FL (78-98); MEAN PLATELET VOLUME 8.1 FL (7.4-10.4); MONOCYTES # (AUTO) 0.8 X10'3 (0-0.9); MONOCYTES % (AUTO) 7.6 % (2-12); NEUTROPHILS # (AUTO) 8.7 X10'3 (1.8-7.7); NEUTROPHILS % (AUTO) 86.2 % (42-75); PLATELET COUNT 167 X10'3 (140-440); RED BLOOD COUNT 3.64 X10'6 (4.20-5.60); RED CELL DISTRIBUTION WIDTH 14.4 % (11.5-14.5); WHITE BLOOD COUNT 10.1 X10'3 (4.5-11.0)
[2017-07-20] MEDS: morphine 4 MG/ML inj SYRINge IV PRN ×4 (05:41→22:49)
[2017-07-20] MEDS: normal saline 1000ml 1,000 ML IV SCH (05:41)
[2017-07-20 05:52] LABS: INR 1.1 INR; PROTHROMBIN TIME 11.4 SECONDS (9.0-12.0)
[2017-07-20 06:25] LABS: ALANINE AMINOTRANSFERASE 19 U/L (12-78); ALBUMIN 3.2 G/DL (3.4-5.0); ALKALINE PHOSPHATASE 67 IU/L (46-116); ANION GAP 13 (8-16); ASPARTATE AMINO TRANSFERASE 23 U/L (10-37); BILIRUBIN,TOTAL 0.9 MG/DL (0.1-1.0); BLOOD UREA NITROGEN 12 MG/DL (7-18); BUN/CREATININE RATIO 14.5 (6.6-38.0); CALCIUM 8.5 MG/DL (8.5-10.1); CHLORIDE 104 MMOL/L (99-107); CREATININE 0.83 MG/DL (0.40-0.90); GLUCOSE 125 MG/DL (70-104); MAGNESIUM 1.5 MG/DL (1.5-2.4); PHOSPHORUS 2.6 MG/DL (2.3-4.5); POTASSIUM 3.4 MMOL/L (3.5-5.1); SODIUM 137 MMOL/L (135-145); TOTAL CARBON DIOXIDE 20.2 MMOL/L (24-32); TOTAL PROTEIN 6.4 G/DL (6.4-8.2); eGFR 66 ML/MIN
[2017-07-20] MEDS: levoFLOXACIN-Levaquin 250mg/D5 50 ML IV SCH (07:21)
[2017-07-20] MEDS: lactobacillus rhamnosus 10,000 MMU CELLS/CAPSULE PO SCH ×2 (07:22→20:53)
[2017-07-20] MEDS: heparin, porcine 5000 units/ml vial SQ SCH ×2 (07:22→20:55)
[2017-07-20] MEDS: folic acid inj. 2 MG, thiamine inj. 100 MG, MVI, adult No.4 with vit. K 10 ML in dextro... IV SCH ×4 (10:09)
[2017-07-20] MEDS ORDERED: potassium Cl 20 mEq SR tablet PO ONE (11:25)
[2017-07-20] MEDS: sennosides 8.6mg tablet PO SCH (21:00)
[2017-07-21 06:00] VITALS: BP 130/77
[2017-07-21 07:33] LABS: BASOPHILS % (AUTO) 0.3 % (0-1); EOSINOPHILS # (AUTO) 0.2 X10'3 (0-0.9); EOSINOPHILS % (AUTO) 2.1 % (0-6); HEMATOCRIT 34.5 % (35.0-45.0); HEMOGLOBIN 11.9 g/dl (12.0-16.0); LYMPHOCYTES # (AUTO) 1.3 X10'3 (1.1-4.8); MEAN CORPUSCULAR HEMOGLOBIN 34.2 PG (27.0-31.0); MEAN CORPUSCULAR HGB CONC 34.4 % (33.0-36.5); MEAN CORPUSCULAR VOLUME 99.3 FL (78-98); MEAN PLATELET VOLUME 8.4 FL (7.4-10.4); MONOCYTES # (AUTO) 0.8 X10'3 (0-0.9); MONOCYTES % (AUTO) 9.6 % (2-12); NEUTROPHILS # (AUTO) 6.4 X10'3 (1.8-7.7); PLATELET COUNT 188 X10'3 (140-440); RED BLOOD COUNT 3.48 X10'6 (4.20-5.60); RED CELL DISTRIBUTION WIDTH 14.7 % (11.5-14.5); WHITE BLOOD COUNT 8.7 X10'3 (4.5-11.0)
[2017-07-21 07:42] LABS: PROTHROMBIN TIME 10.3 SECONDS (9.0-12.0)
[2017-07-21 08:06] LABS: ALANINE AMINOTRANSFERASE 24 U/L (12-78); ALBUMIN/GLOBULIN RATIO 0.9 (1.1-1.5); ALKALINE PHOSPHATASE 70 IU/L (46-116); ANION GAP 14 (8-16); ASPARTATE AMINO TRANSFERASE 17 U/L (10-37); BILIRUBIN,TOTAL 0.9 MG/DL (0.1-1.0); BLOOD UREA NITROGEN 12 MG/DL (7-18); BUN/CREATININE RATIO 12.9 (6.6-38.0); CALCIUM 8.9 MG/DL (8.5-10.1); CHLORIDE 105 MMOL/L (99-107); CREATININE 0.93 MG/DL (0.40-0.90); GLUCOSE 96 MG/DL (70-104); MAGNESIUM 1.8 MG/DL (1.5-2.4); PHOSPHORUS 2.3 MG/DL (2.3-4.5); POTASSIUM 3.9 MMOL/L (3.5-5.1); SODIUM 140 MMOL/L (135-145); TOTAL CARBON DIOXIDE 20.6 MMOL/L (24-32); TOTAL PROTEIN 6.5 G/DL (6.4-8.2); eGFR 58 ML/MIN
[2017-07-21] MEDS: lactobacillus rhamnosus 10,000 MMU CELLS/CAPSULE PO SCH ×2 (09:33→20:24)
[2017-07-21] MEDS: levoFLOXACIN-Levaquin 250mg/D5 50 ML IV SCH (09:33)
[2017-07-21] MEDS: heparin, porcine 5000 units/ml vial SQ SCH ×2 (09:34→20:26)
[2017-07-21 10:00] VITALS: BP 120/73
[2017-07-21] MEDS: folic acid inj. 2 MG, thiamine inj. 100 MG, MVI, adult No.4 with vit. K 10 ML in dextro... IV SCH ×4 (11:10)
[2017-07-21] MEDS: morphine 4 MG/ML inj SYRINge IV PRN (14:41)
[2017-07-21 19:45] VITALS: BP 126/68
[2017-07-21] MEDS: sennosides 8.6mg tablet PO SCH (20:24)
[2017-07-21 23:38] VITALS: BP 131/68
[2017-07-22] MEDS: HYDROcodone/acetaminophen 10/325mg tab PO PRN ×2 (05:54→15:12)
[2017-07-22 06:00] VITALS: BP 132/75
[2017-07-22 07:08] LABS: BASOPHILS % (AUTO) 0.2 % (0-1); EOSINOPHILS # (AUTO) 0.2 X10'3 (0-0.9); EOSINOPHILS % (AUTO) 2.7 % (0-6); HEMATOCRIT 33.2 % (35.0-45.0); HEMOGLOBIN 11.4 g/dl (12.0-16.0); LYMPHOCYTES # (AUTO) 1.2 X10'3 (1.1-4.8); LYMPHOCYTES % (AUTO) 18.7 % (21-51); MEAN CORPUSCULAR HEMOGLOBIN 34.4 PG (27.0-31.0); MEAN CORPUSCULAR HGB CONC 34.4 % (33.0-36.5); MEAN CORPUSCULAR VOLUME 99.9 FL (78-98); MEAN PLATELET VOLUME 7.8 FL (7.4-10.4); MONOCYTES # (AUTO) 0.8 X10'3 (0-0.9); MONOCYTES % (AUTO) 11.7 % (2-12); NEUTROPHILS # (AUTO) 4.3 X10'3 (1.8-7.7); NEUTROPHILS % (AUTO) 66.7 % (42-75); PLATELET COUNT 217 X10'3 (140-440); RED BLOOD COUNT 3.32 X10'6 (4.20-5.60); RED CELL DISTRIBUTION WIDTH 14.2 % (11.5-14.5); WHITE BLOOD COUNT 6.4 X10'3 (4.5-11.0)
[2017-07-22 07:18] LABS: PROTHROMBIN TIME 10.3 SECONDS (9.0-12.0)
[2017-07-22 07:27] LABS: ALANINE AMINOTRANSFERASE 23 U/L (12-78); ALBUMIN 2.8 G/DL (3.4-5.0); ALBUMIN/GLOBULIN RATIO 0.8 (1.1-1.5); ALKALINE PHOSPHATASE 78 IU/L (46-116); ANION GAP 10 (8-16); ASPARTATE AMINO TRANSFERASE 19 U/L (10-37); BILIRUBIN,TOTAL 0.7 MG/DL (0.1-1.0); BLOOD UREA NITROGEN 11 MG/DL (7-18); BUN/CREATININE RATIO 12.4 (6.6-38.0); CALCIUM 8.7 MG/DL (8.5-10.1); CHLORIDE 108 MMOL/L (99-107); CREATININE 0.89 MG/DL (0.40-0.90); GLUCOSE 109 MG/DL (70-104); PHOSPHORUS 2.9 MG/DL (2.3-4.5); POTASSIUM 3.6 MMOL/L (3.5-5.1); SODIUM 141 MMOL/L (135-145); TOTAL CARBON DIOXIDE 22.6 MMOL/L (24-32); TOTAL PROTEIN 6.2 G/DL (6.4-8.2); eGFR 61 ML/MIN
[2017-07-22] MEDS ORDERED: pantoprazole 40mg Tablet.DR PO SCH (07:30)
[2017-07-22] MEDS ORDERED: folic acid 1mg tablet PO SCH (08:00)
[2017-07-22] MEDS ORDERED: tolterodine 2mg SR capsule (24hr) PO SCH (08:00)
[2017-07-22] MEDS ORDERED: thiamine 100mg tablet PO SCH (08:00)
[2017-07-22] MEDS ORDERED: aspirin 81mg tab.chew PO SCH (08:00)
[2017-07-22] MEDS ORDERED: celeCOXIB 100mg capsule PO SCH (08:00)
[2017-07-22] MEDS ORDERED: citalopram 20mg tablet PO SCH (08:00)
[2017-07-22] MEDS ORDERED: atorvastatin 20mg tablet PO SCH (08:00)
[2017-07-22] MEDS ORDERED: multivitamins, therapeutics tablet PO SCH (08:00)
[2017-07-22] MEDS: levoFLOXACIN-Levaquin 250mg/D5 50 ML IV SCH (08:59)
[2017-07-22] MEDS: lactobacillus rhamnosus 10,000 MMU CELLS/CAPSULE PO SCH (09:08)
[2017-07-22] MEDS: heparin, porcine 5000 units/ml vial SQ SCH (09:19)
[2017-07-22 10:00] VITALS: BP 114/57
[2017-07-22] MEDS ORDERED: levoFLOXACIN 250mg tablet PO SCH (11:00)
== END 2017-07-22 15:00 | disposition home or self-care (01) | DRG 481 ==
LOC: ER 17:52 → ED HOLD 22:18 → SUR 3N 07-19 08:25 → ORTHO 4S 07-19 17:00
PROVIDERS: ADMIT Family Medicine; ATTEND Family Medicine
PROC: 0QS634Z Reposition Right Upper Femur with Internal Fixation Device, Percutaneous Approach (ICD-10-PCS; principal; 2017-07-19 14:32)
DX: S72.001A Fracture of unspecified part of neck of right femur, initial encounter for closed fracture (principal); N17.9 Acute kidney failure, unspecified; N39.0 Urinary tract infection, site not specified; E78.00 Pure hypercholesterolemia, unspecified; I10 Essential (primary) hypertension; J45.20 Mild intermittent asthma, uncomplicated; W01.0XXA Fall on same level from slipping, tripping and stumbling without subsequent striking against object, initial encounter; K21.9 Gastro-esophageal reflux disease without esophagitis; B95.2 Enterococcus as the cause of diseases classified elsewhere; Z16.39 Resistance to other specified antimicrobial drug; F32.9 Major depressive disorder, single episode, unspecified; G89.29 Other chronic pain; M19.90 Unspecified osteoarthritis, unspecified site; Z60.2 Problems related to living alone; Z88.1 Allergy status to other antibiotic agents; Z88.8 Allergy status to other drugs, medicaments and biological substances; Z72.89 Other problems related to lifestyle; Z79.899 Other long term (current) drug therapy; Z79.82 Long term (current) use of aspirin; Z87.891 Personal history of nicotine dependence; Y93.89 Activity, other specified; Y92.89 Other specified places as the place of occurrence of the external cause; Y99.8 Other external cause status
CPT/HCPCS: 36415; 71045; 73502; 73700; 76000; 80053; 81001; 82948; 83735; 84100; 84484; 85025; 85610; 85730; 87070; 87077; 87088; 87186; 93005; 96374; 97110; 97116; 97162; 97530; 99285; A4315; A6222; A6251; A6258; A7000; C1713; J0360; J1644; J1956; J2060; J2175; J2270; J2405; J2704; J3370; J3411; J3490; J7030; J7060; J7120

== ENCOUNTER 2017-08-08 20:57 | Inpatient (IN) | payer MEDICARE, OTHER ==
[~2017-08-08] VITALS: Ht 162.6 cm; Wt 75.0 kg
[~2017-08-08 20:57] MED LIST changes: -FAMO40TA7 PO; -ONDA8TAB9 PO
[2017-08-08] MEDS ORDERED: ipratropium/albuterol 3ml nebule NEB ONE (21:25)
[2017-08-08] MEDS ORDERED: normal saline 1000ML IV soln IVB ONE (21:25)
[2017-08-08] MEDS ORDERED: methylPREDNISolone sod succ 125mg/2ml vial IV ONE (21:25)
[2017-08-08 22:06] LABS: BASOPHILS % (AUTO) 0.3 % (0-1); EOSINOPHILS # (AUTO) 0.1 X10'3 (0-0.9); EOSINOPHILS % (AUTO) 1.9 % (0-6); HEMATOCRIT 33.5 % (35.0-45.0); HEMOGLOBIN 11.1 g/dl (12.0-16.0); LYMPHOCYTES % (AUTO) 34.5 % (21-51); MEAN CORPUSCULAR HEMOGLOBIN 32.9 PG (27.0-31.0); MEAN CORPUSCULAR HGB CONC 33.2 % (33.0-36.5); MEAN CORPUSCULAR VOLUME 99.1 FL (78-98); MEAN PLATELET VOLUME 7.4 FL (7.4-10.4); MONOCYTES # (AUTO) 0.7 X10'3 (0-0.9); MONOCYTES % (AUTO) 11.5 % (2-12); NEUTROPHILS % (AUTO) 51.8 % (42-75); PLATELET COUNT 404 X10'3 (140-440); RED BLOOD COUNT 3.38 X10'6 (4.20-5.60); WHITE BLOOD COUNT 5.8 X10'3 (4.5-11.0)
[2017-08-08 22:33] LABS: ALANINE AMINOTRANSFERASE 19 U/L (12-78); ALBUMIN/GLOBULIN RATIO 0.9 (1.1-1.5); ALKALINE PHOSPHATASE 87 IU/L (46-116); ANION GAP 8 (8-16); ASPARTATE AMINO TRANSFERASE 16 U/L (10-37); BILIRUBIN,TOTAL 0.3 MG/DL (0.1-1.0); BLOOD UREA NITROGEN 22 MG/DL (7-18); BUN/CREATININE RATIO 21.4 (6.6-38.0); CALCIUM 9.3 MG/DL (8.5-10.1); CHLORIDE 107 MMOL/L (99-107); CREATININE 1.03 MG/DL (0.40-0.90); GLUCOSE 103 MG/DL (70-104); MAGNESIUM 2.1 MG/DL (1.5-2.4); PHOSPHORUS 3.1 MG/DL (2.3-4.5); POTASSIUM 4.1 MMOL/L (3.5-5.1); SODIUM 144 MMOL/L (135-145); TOTAL CARBON DIOXIDE 29.5 MMOL/L (24-32); TOTAL PROTEIN 6.5 G/DL (6.4-8.2); eGFR 51 ML/MIN
[2017-08-08] MEDS ORDERED: clindamycin-Cleocin 900mg/D5W 50 ML IV ONE (23:40)
[2017-08-09] MEDS ORDERED: potassium Cl 40MEQ/NS 500ml 500 ML IV PRN ×2
[2017-08-09] MEDS ORDERED: acetaminophen 325mg tablet PO PRN
[2017-08-09] MEDS ORDERED: potassium Cl 20 mEq SR tablet PO PRN ×2
[2017-08-09] MEDS ORDERED: magnesium Cl slow-release 64mg tablet PO PRN
[2017-08-09] MEDS ORDERED: magnesium 4gm in 100ml NS 100 ML IV PRN
[2017-08-09] MEDS ORDERED: ondansetron/PF 4mg/2ml inj IV PRN
[2017-08-09] MEDS ORDERED: magnesium 2GM in 50ml NS 50 ML IV PRN
[2017-08-09] MEDS ORDERED: morphine 4 MG/ML inj SYRINge IV PRN ×2
[2017-08-09] MEDS ORDERED: mag hydrox/Alum hydrox/simeth 30ml oral suspension PO PRN
[2017-08-09] MEDS ORDERED: vancomycin/NS 1 GM ADD-VANTAGE 250 ML IV ONE (00:20)
[2017-08-09] MEDS: normal saline 1000ml 1,000 ML IV SCH ×2 (01:13→05:36)
[2017-08-09] MEDS: pantoprazole 40mg Tablet.DR PO SCH (07:09)
[2017-08-09 08:00] VITALS: BP 132/89
[2017-08-09] MEDS: oxybutynin 5mg tablet PO SCH ×5 (08:00→20:45)
[2017-08-09] MEDS: K and/or MAG REPLACEMENT MC SCH (08:00)
[2017-08-09 10:00] VITALS: BP 140/83
[2017-08-09] MEDS: citalopram 20mg tablet PO SCH (13:37)
[2017-08-09] MEDS: celeCOXIB 100mg capsule PO SCH (13:37)
[2017-08-09] MEDS: atorvastatin 20mg tablet PO SCH (13:37)
[2017-08-09] MEDS: lactobacillus rhamnosus 10,000 MMU CELLS/CAPSULE PO SCH ×2 (13:37→20:45)
[2017-08-09] MEDS: vancomycin/NS 1 GM ADD-VANTAGE 250 ML IV SCH (15:23)
[2017-08-09 18:00] VITALS: BP 137/64
[2017-08-09] MEDS ORDERED: temazepam 15mg capsule PO PRN (21:00)
[2017-08-09 22:00] VITALS: BP 133/63
[2017-08-09 23:50] LABS: CLARITY,URINE CLEAR (Clear); COLOR,URINE YELLOW (Yellow); GLUCOSE, URINE NEGATIVE (Neg); KETONES,URINE NEGATIVE (Neg); LEUKOCYTE ESTERASE ,URINE TRACE (Neg); NITRITES, URINE NEGATIVE (Neg); OCCULT BLOOD,URINE TRACE-INTACT (Neg); PH,URINE 6.5 (4.8-8.0); PROTEIN,URINE NEGATIVE (Neg); UROBILINOGEN,URINE 0.2 E.U/dL (0.2-1.0)
[2017-08-09 23:55] LABS: UA COLLECTION TYPE CLN CATCH MIDSTREAM
[2017-08-10 00:09] LABS: BACTERIA,URINE FEW /HPF (Neg); MUCUS STRANDS FEW /LPF (Neg); RBC,URINE 0-2 /HPF (0-2); SQUAMOUS EPITHELIAL CELL,UR NONE SEEN /LPF (FEW); WBC,URINE 0-4 /HPF (0-4)
[2017-08-10] MEDS: vancomycin/NS 1 GM ADD-VANTAGE 250 ML IV SCH ×2 (03:00→16:50)
[2017-08-10] MEDS: magnesium hydroxide 30ml (MOM) UD suspension PO PRN ×2 (03:09→20:08)
[2017-08-10 05:20] LABS: BASOPHILS % (AUTO) 0.3 % (0-1); EOSINOPHILS # (AUTO) 0.1 X10'3 (0-0.9); HEMATOCRIT 34.5 % (35.0-45.0); HEMOGLOBIN 11.6 g/dl (12.0-16.0); LYMPHOCYTES % (AUTO) 28.6 % (21-51); MEAN CORPUSCULAR HEMOGLOBIN 33.1 PG (27.0-31.0); MEAN CORPUSCULAR HGB CONC 33.7 % (33.0-36.5); MEAN CORPUSCULAR VOLUME 98.2 FL (78-98); MEAN PLATELET VOLUME 7.5 FL (7.4-10.4); MONOCYTES # (AUTO) 0.7 X10'3 (0-0.9); NEUTROPHILS # (AUTO) 4.1 X10'3 (1.8-7.7); NEUTROPHILS % (AUTO) 60.1 % (42-75); PLATELET COUNT 382 X10'3 (140-440); RED BLOOD COUNT 3.52 X10'6 (4.20-5.60); RED CELL DISTRIBUTION WIDTH 13.7 % (11.5-14.5); WHITE BLOOD COUNT 6.9 X10'3 (4.5-11.0)
[2017-08-10 05:54] LABS: ALANINE AMINOTRANSFERASE 20 U/L (12-78); ALBUMIN 2.9 G/DL (3.4-5.0); ALBUMIN/GLOBULIN RATIO 0.8 (1.1-1.5); ALKALINE PHOSPHATASE 85 IU/L (46-116); ANION GAP 11 (8-16); ASPARTATE AMINO TRANSFERASE 17 U/L (10-37); BILIRUBIN,TOTAL 0.4 MG/DL (0.1-1.0); BLOOD UREA NITROGEN 17 MG/DL (7-18); BUN/CREATININE RATIO 19.1 (6.6-38.0); CHLORIDE 110 MMOL/L (99-107); CREATININE 0.89 MG/DL (0.40-0.90); GLUCOSE 94 MG/DL (70-104); POTASSIUM 3.7 MMOL/L (3.5-5.1); SODIUM 144 MMOL/L (135-145); TOTAL CARBON DIOXIDE 23.4 MMOL/L (24-32); TOTAL PROTEIN 6.5 G/DL (6.4-8.2); eGFR 61 ML/MIN
[2017-08-10 06:00] VITALS: BP 155/88
[2017-08-10] MEDS: K and/or MAG REPLACEMENT MC SCH (08:00)
[2017-08-10] MEDS: oxybutynin 5mg tablet PO SCH (08:57)
[2017-08-10] MEDS: lactobacillus rhamnosus 10,000 MMU CELLS/CAPSULE PO SCH ×2 (08:57→20:08)
[2017-08-10] MEDS: citalopram 20mg tablet PO SCH (08:58)
[2017-08-10] MEDS: atorvastatin 20mg tablet PO SCH (08:58)
[2017-08-10] MEDS: celeCOXIB 100mg capsule PO SCH (08:58)
[2017-08-10] MEDS: pantoprazole 40mg Tablet.DR PO SCH (09:02)
[2017-08-10] MEDS ORDERED: CefTRIAXone/D5W-Rocephin 1gm 50 ML IV ONE (09:45)
[2017-08-10 10:00] VITALS: BP 138/74
[2017-08-10] MEDS ORDERED: VANCOMYCIN LEVEL IV ONE (14:30)
[2017-08-10 18:00] VITALS: BP 136/76
[2017-08-10] MEDS: docusate sod 100mg capsule PO SCH (20:08)
[2017-08-10 22:00] VITALS: BP 109/79
[2017-08-11] MEDS: vancomycin/NS 1 GM ADD-VANTAGE 250 ML IV SCH (03:02)
[2017-08-11 05:19] LABS: BASOPHILS % (AUTO) 0.4 % (0-1); EOSINOPHILS # (AUTO) 0.2 X10'3 (0-0.9); EOSINOPHILS % (AUTO) 2.7 % (0-6); HEMATOCRIT 35.9 % (35.0-45.0); HEMOGLOBIN 12.3 g/dl (12.0-16.0); LYMPHOCYTES % (AUTO) 25.8 % (21-51); MEAN CORPUSCULAR HEMOGLOBIN 33.6 PG (27.0-31.0); MEAN CORPUSCULAR HGB CONC 34.3 % (33.0-36.5); MEAN CORPUSCULAR VOLUME 97.8 FL (78-98); MEAN PLATELET VOLUME 7.4 FL (7.4-10.4); MONOCYTES # (AUTO) 0.6 X10'3 (0-0.9); MONOCYTES % (AUTO) 7.9 % (2-12); NEUTROPHILS % (AUTO) 63.2 % (42-75); PLATELET COUNT 422 X10'3 (140-440); RED BLOOD COUNT 3.67 X10'6 (4.20-5.60); RED CELL DISTRIBUTION WIDTH 13.6 % (11.5-14.5); WHITE BLOOD COUNT 7.9 X10'3 (4.5-11.0)
[2017-08-11 05:46] LABS: ALANINE AMINOTRANSFERASE 21 U/L (12-78); ALBUMIN 2.9 G/DL (3.4-5.0); ALBUMIN/GLOBULIN RATIO 0.8 (1.1-1.5); ALKALINE PHOSPHATASE 84 IU/L (46-116); ANION GAP 13 (8-16); ASPARTATE AMINO TRANSFERASE 17 U/L (10-37); BILIRUBIN,TOTAL 0.5 MG/DL (0.1-1.0); BLOOD UREA NITROGEN 17 MG/DL (7-18); BUN/CREATININE RATIO 19.5 (6.6-38.0); CALCIUM 8.7 MG/DL (8.5-10.1); CHLORIDE 107 MMOL/L (99-107); CREATININE 0.87 MG/DL (0.40-0.90); GLUCOSE 93 MG/DL (70-104); MAGNESIUM 2.1 MG/DL (1.5-2.4); POTASSIUM 3.9 MMOL/L (3.5-5.1); SODIUM 142 MMOL/L (135-145); TOTAL CARBON DIOXIDE 22.2 MMOL/L (24-32); TOTAL PROTEIN 6.5 G/DL (6.4-8.2); eGFR 62 ML/MIN
[2017-08-11 06:00] VITALS: BP 140/83
[2017-08-11] MEDS: K and/or MAG REPLACEMENT MC SCH (08:37)
[2017-08-11] MEDS: docusate sod 100mg capsule PO SCH ×2 (08:43→21:20)
[2017-08-11] MEDS: atorvastatin 20mg tablet PO SCH (08:43)
[2017-08-11] MEDS: lactobacillus rhamnosus 10,000 MMU CELLS/CAPSULE PO SCH ×2 (08:43→21:20)
[2017-08-11] MEDS: CefTRIAXone/D5W-Rocephin 1gm 50 ML IV SCH (08:44)
[2017-08-11] MEDS: celeCOXIB 100mg capsule PO SCH (08:44)
[2017-08-11] MEDS: citalopram 20mg tablet PO SCH (08:44)
[2017-08-11] MEDS: pantoprazole 40mg Tablet.DR PO SCH (08:51)
[2017-08-11] MEDS: TOLTERODINE 4 MG PO SCH (08:52)
[2017-08-11 10:00] VITALS: BP 111/73
[2017-08-11] MEDS ORDERED: LEVO500T2 PO (11:18)
[2017-08-11] MEDS: vancomycin inj 1,250 MG in normal saline 250ml IV soln 250 ML IV SCH (15:19)
[2017-08-11 18:00] VITALS: BP 126/83
[2017-08-11 22:00] VITALS: BP 122/76
[2017-08-12] MEDS: vancomycin inj 1,250 MG in normal saline 250ml IV soln 250 ML IV SCH ×2 (03:44→15:29)
[2017-08-12 05:34] LABS: BASOPHILS % (AUTO) 0.3 % (0-1); EOSINOPHILS # (AUTO) 0.3 X10'3 (0-0.9); EOSINOPHILS % (AUTO) 4.4 % (0-6); HEMATOCRIT 35.3 % (35.0-45.0); HEMOGLOBIN 12.1 g/dl (12.0-16.0); LYMPHOCYTES # (AUTO) 1.6 X10'3 (1.1-4.8); LYMPHOCYTES % (AUTO) 21.9 % (21-51); MEAN CORPUSCULAR HEMOGLOBIN 33.6 PG (27.0-31.0); MEAN CORPUSCULAR HGB CONC 34.4 % (33.0-36.5); MEAN CORPUSCULAR VOLUME 97.8 FL (78-98); MEAN PLATELET VOLUME 7.6 FL (7.4-10.4); MONOCYTES # (AUTO) 0.6 X10'3 (0-0.9); MONOCYTES % (AUTO) 8.5 % (2-12); NEUTROPHILS # (AUTO) 4.9 X10'3 (1.8-7.7); NEUTROPHILS % (AUTO) 64.9 % (42-75); PLATELET COUNT 354 X10'3 (140-440); RED CELL DISTRIBUTION WIDTH 13.9 % (11.5-14.5); WHITE BLOOD COUNT 7.5 X10'3 (4.5-11.0)
[2017-08-12 06:00] VITALS: BP 128/67
[2017-08-12 06:57] LABS: ALANINE AMINOTRANSFERASE 21 U/L (12-78); ALBUMIN 2.8 G/DL (3.4-5.0); ALBUMIN/GLOBULIN RATIO 0.8 (1.1-1.5); ALKALINE PHOSPHATASE 85 IU/L (46-116); ANION GAP 12 (8-16); ASPARTATE AMINO TRANSFERASE 15 U/L (10-37); BILIRUBIN,TOTAL 0.5 MG/DL (0.1-1.0); BLOOD UREA NITROGEN 18 MG/DL (7-18); BUN/CREATININE RATIO 18.2 (6.6-38.0); CALCIUM 8.6 MG/DL (8.5-10.1); CHLORIDE 110 MMOL/L (99-107); CREATININE 0.99 MG/DL (0.40-0.90); GLUCOSE 111 MG/DL (70-104); MAGNESIUM 2.1 MG/DL (1.5-2.4); SODIUM 143 MMOL/L (135-145); TOTAL CARBON DIOXIDE 20.9 MMOL/L (24-32); TOTAL PROTEIN 6.1 G/DL (6.4-8.2); eGFR 54 ML/MIN
[2017-08-12] MEDS: K and/or MAG REPLACEMENT MC SCH (08:00)
[2017-08-12] MEDS ORDERED: HYDROcodone/acetaminophen 5mg/325mg tablet PO PRN (09:35)
[2017-08-12] MEDS ORDERED: MORPHINE 2MG in 2ml NS syringe IV PRN (09:38)
[2017-08-12] MEDS: celeCOXIB 100mg capsule PO SCH (09:41)
[2017-08-12] MEDS: atorvastatin 20mg tablet PO SCH (09:41)
[2017-08-12] MEDS: CefTRIAXone/D5W-Rocephin 1gm 50 ML IV SCH (09:41)
[2017-08-12] MEDS: pantoprazole 40mg Tablet.DR PO SCH (09:41)
[2017-08-12] MEDS: docusate sod 100mg capsule PO SCH ×2 (09:42→19:32)
[2017-08-12] MEDS: citalopram 20mg tablet PO SCH (09:42)
[2017-08-12] MEDS: lactobacillus rhamnosus 10,000 MMU CELLS/CAPSULE PO SCH ×2 (09:42→19:32)
[2017-08-12 10:00] VITALS: BP 120/67
[2017-08-12] MEDS: TOLTERODINE 4 MG PO SCH (13:37)
[2017-08-12] MEDS: HYDROcodone/acetaminophen 5mg/325mg tablet PO PRN (15:33)
[2017-08-12 18:30] VITALS: BP 121/77
[2017-08-12 22:00] VITALS: BP 112/59
[2017-08-13] MEDS: vancomycin inj 1,250 MG in normal saline 250ml IV soln 250 ML IV SCH (02:27)
[2017-08-13] MEDS ORDERED: VANCOMYCIN LEVEL IV NR (02:30)
[2017-08-13 02:39] LABS: BASOPHILS # (AUTO) 0.1 X10'3 (0-0.2); BASOPHILS % (AUTO) 0.7 % (0-1); EOSINOPHILS # (AUTO) 0.4 X10'3 (0-0.9); EOSINOPHILS % (AUTO) 5.4 % (0-6); HEMATOCRIT 34.9 % (35.0-45.0); HEMOGLOBIN 11.7 g/dl (12.0-16.0); LYMPHOCYTES # (AUTO) 1.4 X10'3 (1.1-4.8); LYMPHOCYTES % (AUTO) 20.4 % (21-51); MEAN CORPUSCULAR HEMOGLOBIN 33.1 PG (27.0-31.0); MEAN CORPUSCULAR HGB CONC 33.4 % (33.0-36.5); MEAN CORPUSCULAR VOLUME 99.3 FL (78-98); MEAN PLATELET VOLUME 7.5 FL (7.4-10.4); MONOCYTES # (AUTO) 0.7 X10'3 (0-0.9); MONOCYTES % (AUTO) 9.4 % (2-12); NEUTROPHILS # (AUTO) 4.5 X10'3 (1.8-7.7); NEUTROPHILS % (AUTO) 64.1 % (42-75); PLATELET COUNT 318 X10'3 (140-440); RED BLOOD COUNT 3.52 X10'6 (4.20-5.60); WHITE BLOOD COUNT 7.1 X10'3 (4.5-11.0)
[2017-08-13 02:51] LABS: ALANINE AMINOTRANSFERASE 21 U/L (12-78); ALBUMIN 2.8 G/DL (3.4-5.0); ALBUMIN/GLOBULIN RATIO 0.9 (1.1-1.5); ALKALINE PHOSPHATASE 85 IU/L (46-116); ANION GAP 10 (8-16); ASPARTATE AMINO TRANSFERASE 14 U/L (10-37); BILIRUBIN,TOTAL 0.4 MG/DL (0.1-1.0); BLOOD UREA NITROGEN 19 MG/DL (7-18); BUN/CREATININE RATIO 18.3 (6.6-38.0); CALCIUM 8.5 MG/DL (8.5-10.1); CHLORIDE 107 MMOL/L (99-107); CREATININE 1.04 MG/DL (0.40-0.90); GLUCOSE 94 MG/DL (70-104); SODIUM 139 MMOL/L (135-145); TOTAL CARBON DIOXIDE 22.5 MMOL/L (24-32); eGFR 51 ML/MIN
[2017-08-13 02:54] LABS: VANCOMYCIN,TROUGH 26.4 UG/ML (6.0-14.0)
[2017-08-13] MEDS: HYDROcodone/acetaminophen 5mg/325mg tablet PO PRN ×2 (04:51→18:37)
[2017-08-13 05:30] VITALS: BP 119/65
[2017-08-13] MEDS: pantoprazole 40mg Tablet.DR PO SCH (07:30)
[2017-08-13] MEDS: celeCOXIB 100mg capsule PO SCH (08:00)
[2017-08-13] MEDS: K and/or MAG REPLACEMENT MC SCH (08:00)
[2017-08-13] MEDS: docusate sod 100mg capsule PO SCH ×2 (08:00→20:00)
[2017-08-13] MEDS: atorvastatin 20mg tablet PO SCH (08:00)
[2017-08-13] MEDS: TOLTERODINE 4 MG PO SCH (08:00)
[2017-08-13] MEDS: CefTRIAXone/D5W-Rocephin 1gm 50 ML IV SCH (08:00)
[2017-08-13] MEDS: citalopram 20mg tablet PO SCH (08:00)
[2017-08-13] MEDS: lactobacillus rhamnosus 10,000 MMU CELLS/CAPSULE PO SCH ×2 (08:00→20:00)
[2017-08-13 11:24] VITALS: BP 110/61
[2017-08-13] MEDS ORDERED: VANCOMYCIN 750MG IV in NS 250 ML IV SCH (15:00)
[2017-08-13 18:30] VITALS: BP 109/63
[2017-08-13 22:00] VITALS: BP 124/71
[2017-08-14] MEDS: HYDROcodone/acetaminophen 5mg/325mg tablet PO PRN (05:13)
[2017-08-14 06:07] LABS: BASOPHILS % (AUTO) 0.2 % (0-1); EOSINOPHILS # (AUTO) 0.4 X10'3 (0-0.9); EOSINOPHILS % (AUTO) 5.1 % (0-6); HEMATOCRIT 35.3 % (35.0-45.0); HEMOGLOBIN 12.2 g/dl (12.0-16.0); LYMPHOCYTES # (AUTO) 1.4 X10'3 (1.1-4.8); LYMPHOCYTES % (AUTO) 18.2 % (21-51); MEAN CORPUSCULAR HEMOGLOBIN 33.6 PG (27.0-31.0); MEAN CORPUSCULAR HGB CONC 34.5 % (33.0-36.5); MEAN CORPUSCULAR VOLUME 97.4 FL (78-98); MEAN PLATELET VOLUME 7.8 FL (7.4-10.4); MONOCYTES # (AUTO) 0.7 X10'3 (0-0.9); MONOCYTES % (AUTO) 9.5 % (2-12); NEUTROPHILS # (AUTO) 5.2 X10'3 (1.8-7.7); PLATELET COUNT 334 X10'3 (140-440); RED BLOOD COUNT 3.63 X10'6 (4.20-5.60); RED CELL DISTRIBUTION WIDTH 13.9 % (11.5-14.5); WHITE BLOOD COUNT 7.7 X10'3 (4.5-11.0)
[2017-08-14 06:20] LABS: ALANINE AMINOTRANSFERASE 20 U/L (12-78); ALBUMIN 3.1 G/DL (3.4-5.0); ALBUMIN/GLOBULIN RATIO 0.9 (1.1-1.5); ALKALINE PHOSPHATASE 94 IU/L (46-116); ANION GAP 11 (8-16); ASPARTATE AMINO TRANSFERASE 13 U/L (10-37); BILIRUBIN,TOTAL 0.5 MG/DL (0.1-1.0); BLOOD UREA NITROGEN 19 MG/DL (7-18); BUN/CREATININE RATIO 19.8 (6.6-38.0); CALCIUM 8.8 MG/DL (8.5-10.1); CHLORIDE 107 MMOL/L (99-107); CREATININE 0.96 MG/DL (0.40-0.90); GLUCOSE 95 MG/DL (70-104); MAGNESIUM 1.8 MG/DL (1.5-2.4); POTASSIUM 4.2 MMOL/L (3.5-5.1); SODIUM 140 MMOL/L (135-145); TOTAL CARBON DIOXIDE 21.7 MMOL/L (24-32); TOTAL PROTEIN 6.5 G/DL (6.4-8.2); eGFR 56 ML/MIN
[2017-08-14 06:51] VITALS: BP 114/70
[2017-08-14] MEDS: pantoprazole 40mg Tablet.DR PO SCH (07:45)
[2017-08-14] MEDS: atorvastatin 20mg tablet PO SCH (07:46)
[2017-08-14] MEDS: lactobacillus rhamnosus 10,000 MMU CELLS/CAPSULE PO SCH (07:46)
[2017-08-14] MEDS: docusate sod 100mg capsule PO SCH (07:47)
[2017-08-14] MEDS: CefTRIAXone/D5W-Rocephin 1gm 50 ML IV SCH (07:48)
[2017-08-14] MEDS: TOLTERODINE 4 MG PO SCH (07:48)
[2017-08-14] MEDS: citalopram 20mg tablet PO SCH (07:48)
[2017-08-14] MEDS: K and/or MAG REPLACEMENT MC SCH (07:50)
[2017-08-14] MEDS: celeCOXIB 100mg capsule PO SCH (07:58)
[2017-08-15] MEDS ORDERED: VANCOMYCIN LEVEL IV NR (02:30)
== END 2017-08-14 12:18 | DRG 863 ==
LOC: ER 20:57 → ED HOLD 08-09 → EDBEDREQ 08-09 06:46 → ORTHO 4S 08-09 07:56
PROVIDERS: ADMIT Internal Medicine; ATTEND Legal Medicine
DX: T81.4XXA Infection following a procedure, initial encounter (principal); N17.9 Acute kidney failure, unspecified; M96.840 Postprocedural hematoma of a musculoskeletal structure following a musculoskeletal system procedure; L02.415 Cutaneous abscess of right lower limb; D64.9 Anemia, unspecified; J44.9 Chronic obstructive pulmonary disease, unspecified; N39.0 Urinary tract infection, site not specified; E78.5 Hyperlipidemia, unspecified; B95.2 Enterococcus as the cause of diseases classified elsewhere; N18.9 Chronic kidney disease, unspecified; E78.00 Pure hypercholesterolemia, unspecified; F32.9 Major depressive disorder, single episode, unspecified; I12.9 Hypertensive chronic kidney disease with stage 1 through stage 4 chronic kidney disease, or unspecified chronic kidney disease; Z66 Do not resuscitate; G89.29 Other chronic pain; M19.90 Unspecified osteoarthritis, unspecified site; Z90.49 Acquired absence of other specified parts of digestive tract; Z79.82 Long term (current) use of aspirin; Z79.899 Other long term (current) drug therapy; Z88.1 Allergy status to other antibiotic agents; Z88.8 Allergy status to other drugs, medicaments and biological substances; Z87.891 Personal history of nicotine dependence; Y83.4 Other reconstructive surgery as the cause of abnormal reaction of the patient, or of later complication, without mention of misadventure at the time of the procedure; Y92.89 Other specified places as the place of occurrence of the external cause
CPT/HCPCS: 36415; 71045; 73502; 73552; 80053; 80202; 81001; 83605; 83735; 83880; 84100; 84484; 85025; 87040; 87070; 87077; 87088; 87186; 87502; 87503; 93005; 94640; 94760; 96361; 96374; 97110; 97116; 97162; 97530; 99285; J0696; J2930; J3370; J3490; J7030